=== PATIENT | male | born 1995 | race Caucasian/White ===

== ENCOUNTER 2016-08-26 17:13 | Emergency (ER) | payer BC ==
[~2016-08-26] VITALS: Ht 182.9 cm; Wt 99.8 kg
[2016-08-26 17:20] VITALS: TEMP 37.1; Ht 182.9 cm; Wt 99.8 kg
[2016-08-26] MEDS ORDERED: KETOROLAC TROMETHAMINE 60 MG/2 ML VIAL IM STA (18:14)
[2016-08-26] MEDS ORDERED: MULT-513 PO (18:51)
[2016-08-26] MEDS ORDERED: ONDA4TAB46 PO (18:51)
[2016-08-26] MEDS ORDERED: ACET-1256 PO (18:51)
--- NOTE | 2016-08-26 18:54 | DIAGNOSTIC IMAGING REPORT ---
SINGLE VIEW CHEST CLINICAL HISTORY: Flulike symptoms. FINDINGS: An AP, portable, upright chest radiograph is obtained. No prior studies are available for comparison at the time of dictation. The cardiomediastinal silhouette is unremarkable. The lungs and pleural spaces are clear. No pneumothorax is seen. The bony thorax is grossly intact. IMPRESSION: No active disease in the chest. Electronically signed by: Miki Galaviz M.D. 08/26/2016 6:53 PM Dictated Date/Time: 08/26/2016 6:53 PM
[2016-08-26] MEDS ORDERED: ONDA4TAB10 SL (19:22)
--- NOTE | 2016-08-26 19:22 | EMERGENCY ROOM VISIT NOTE ---
History Report prepared by Hattie: Bhaskar Romero Under the Supervision of: Dr. Marcello Rodriguez D.O. First contact with patient: 18:05 Chief Complaint: FLU LIKE SX Stated Complaint: STOMACH ACHE, VOMITING, HEADACHES -[facility] REFERRED History of Present Illness The patient is a 20 year old male who presents to the Emergency Room with complaints of a persistent illness beginning this morning. He notes he woke with stomach pain, and then vomited. He tried to go back to sleep but could not , and continued vomiting. He also complains of a worsening headache, neck stiffness, chills, abdominal pain, and worsening nausea, but denies having any nasal congestion, sore throat, or cough. The patient went to [facility] today and was given Tylenol, Zofran, and IV fluids. He had blood work which resulted in a normal PRP, WBC of 13.4, and a hemoglobin of 15.7. The patient states that he was not tested for the flu at [facility], and did not have a chest x-ray taken. Source of History: patient Onset: this morning Position: other (global) Quality: other (illness) Timing: other (persistent) Associated Symptoms: + abdominal pain, + chills, + headache, + nausea, + vomiting, No cough, No sorethroat Note: The patient denies having any nasal congestion. Review of Systems See HPI for pertinent positives & negatives. A total of 10 systems reviewed and were otherwise negative. Past Medical & Surgical Medical Problems: (1) No Known Active Medical Problems Family History Cancer Gallbladder disease Heart disease Hypertension Social History Smoking Status: Never Smoker Smokeless Tobacco Use: No Alcohol Use: occasionally Drug Use: none Occupation Status: [employer] student Current/Historical Medications Scheduled Multivitamins/Minerals (Mvi With Minerals), 1 TAB PO DAILY Ondasetron Odt (Zofran Odt), 4 MG SL Q6H Scheduled PRN Acetaminophen (Tylenol), 1,000 MG PO Q6 PRN for Pain Ondansetron Hcl (Zofran), 4 MG PO TODAY PRN for Nausea Allergies Coded Allergies: Cefixime (Verified Allergy, Severe, ANAPHYLAXIS, 08/26/16) Sodium Benzoate (Verified Allergy, Severe, ANAPHYLAXIS, 08/26/16) Physical Exam Vital Signs Date Time Temp Pulse Resp B/P Pulse Ox O2 Delivery O2 Flow Rate FiO2 08/26/16 18:58 97 20 121/77 99 Room Air 08/26/16 17:20 37.1 105 20 155/93 97 Room Air Physical Exam CONSTITUTIONAL/VITAL SIGNS: Reviewed / noted above. GENERAL: Non-toxic in appearance. INTEGUMENTARY: Warm, dry, and [place]. HEAD: Normocephalic. EYES: without scleral icterus or trauma. ENT/OROPHARYNX: clear and moist. LYMPHADENOPATHY/NECK: Is supple without lymphadenopathy or meningismus. RESPIRATORY: Lungs clear and equal. CARDIOVASCULAR: Regular rate and rhythm. GI/ABDOMEN: Soft and nontender. No organomegaly or pulsatile mass. No rebound or guarding. Normal bowel sounds. EXTREMITIES: Warm and well perfused. BACK: No CVA tenderness. NEUROLOGICAL: Intact without focal deficits. PSYCHIATRIC: normal affect. MUSCULOSKELETAL: Normally developed with good muscle tone. Medical Decision & Procedures ER Provider Diagnostic Interpretation: Radiology results as stated below per my review and radiologist interpretation: SINGLE VIEW CHEST FINDINGS: An AP, portable, upright chest radiograph is obtained. No prior studies are available for comparison at the time of dictation. The cardiomediastinal silhouette is unremarkable. The lungs and pleural spaces are clear. No pneumothorax is seen. The bony thorax is grossly intact. IMPRESSION: No active disease in the chest. Electronically signed by: Miki Galaviz M.D. 08/26/2016 6:53 PM Dictated Date/Time: 08/26/2016 6:53 PM Laboratory Results Test 08/26/16 18:30 Influenza Type A Antigen Neg for Influ A (NEG) Influenza Type B Antigen Neg for Influ B (NEG) Laboratory results as stated above per my review. ED Course 1808: Previous medical records were reviewed. The patient was evaluated in room C11B. A complete history and physical examination was performed. 1813: Ordered Toradol Inj 60 mg IM. 1919: On reevaluation, the patient is doing well. I discussed the results and findings with the patient. He verbalized agreement of the treatment plan. The patient was discharged home. Medical Decision Differential includes viral illness, influenza, streptococcal pharyngitis, meningitis, pneumonia, sinusitis, UTI, pyelonephritis, otitis media. This is a 20-year-old male who presents to the ED with a chief complaint of flulike symptoms. The patient reports at 6 AM he had some nausea and vomiting as well as a headache. He states that he had some epigastric abdominal pain and achiness as well as some chills. The nurse's note states that he has had neck stiffness and fevers. He was seen at [facility] and given IV fluids, by mouth Tylenol and Zofran. He was sent here because they couldn't figure out what was wrong. They did some blood work and revealed a slight elevation of his white blood cell count. Chemistry panel was unremarkable. The patient's exam here reveals a heart rate of 105. He has no meningismus. No photosensitivity. He has not ill-appearing. He is in no distress. His throat is clear. His lungs are clear. His abdomen is soft and nontender. He has no rashes. Chest x-ray did not show acute disease and a flu swab was negative. The patient's symptoms appear to be likely viral in origin. There is no clinical findings to support meningitis. The patient is felt to be stable for discharge and outpatient follow-up. Impression Primary Impression: Influenza-like symptoms Scribe Attestation The scribe's documentation has been prepared under my direction and personally reviewed by me in its entirety. I confirm that the note above accurately reflects all work, treatment, procedures, and medical decision making performed by me. Departure Information Dispostion Home / Self-Care Prescriptions Ondasetron Odt (ZOFRAN ODT) 4 Mg Tab 4 MG SL Q6H for Nausea, #10 TAB Prov: Marcello Rodriguez D.O. 08/26/16 Referrals No Doctor, Assigned (PCP) Patient Instructions [facility] Additional Instructions Your symptoms are likely viral. Follow-up with [facility] in 1- 2 days if symptoms persist. Return for worsening or new concerns. Drink plenty of fluids. Take Tylenol or Motrin as needed for fever. Zofran: Allow one tablet to dissolve under the tongue every 6 hours as needed for nausea or vomiting.
[2016-08-26 19:42] VITALS: BP 131/84; PULSE 94; O2SAT 97
== END 2016-08-26 19:42 | disposition home or self-care (01) ==
LOC: C.EDB 17:19 → C.EDC 19:42
DX: R68.89 Other general symptoms and signs (principal); Z80.9 Family history of malignant neoplasm, unspecified; Z82.49 Family history of ischemic heart disease and other diseases of the circulatory system; Z83.79 Family history of other diseases of the digestive system